=== PATIENT | female | born 1950 | race Caucasian/White ===

== ENCOUNTER → 2020-04-25 10:14 | Outpatient (CLI) | payer MEDICARE, SELFPAY ==
[2020-04-26 20:57] LABS: COVID19 Sendout Not Detected (Not Detect)
== END ==
PROVIDERS: Family Provider Orthopaedic Surgery; PCP Physician Assistant; Visit Provider Physician Assistant
DX: Z11.59 Encounter for screening for other viral diseases (principal)
CPT/HCPCS: 87635

== ENCOUNTER → 2020-04-28 10:24 | Outpatient (CLI) | payer MEDICARE, OTHER, SELFPAY ==
--- NOTE | 2020-04-28 | DI.NM.S_ITS ---
PROCEDURE: NM DENNIS PERF SPECT REST & STR Rest and exercise myocardial perfusion SPECT with gated imaging and ejection fraction RADIOPHARMACEUTICAL: 25.4 mCi Tc-99m sestamibi IV at rest and 26.7 mCi Tc-99m sestamibi IV at peak exercise. A two day-protocol was performed. INDICATIONS: Other chest pain TECHNIQUE: Radiopharmaceutical was injected at peak stress test, and also at rest. SPECT images were obtained. SPECT myocardial perfusion images were displayed in short axis, horizontal long axis, and vertical long axis views. Gated images were reviewed using [employer] software. COMPARISON: None. CARDIAC STRESS: A standard [place] treadmill exercise tolerance test was performed by the patient under the supervision of an attending staff. The patient exercised for 3 minutes and 15 seconds; functional aerobic impairment (BUCK) is +37%. Hemodynamic data: There is normal blood pressure and heart rate response to exercise stress. Patient achieved 107% of maximum predicted heart rate at peak exercise. Symptoms: Patient denied chest pain during exercise. EKG: No diagnostic EKG changes of ischemia; no ectopy. FINDINGS: Raw data: There is good myocardial labeling by radiotracer. No significant motion artifacts. Xeny-ho-junan ratio is 0.38 (normal is less than 0.38 for sestamibi tracer, and less than 0.50 for thallium tracer). Left ventricle function: Gated images demonstrate normal left ventricle wall thickening. No segmental wall motion abnormality. No transient ischemic dilation; TID is 1.0 (normal less than 1.3). The left ventricle resting end-diastolic volume is 67 mL. Left ventricle stress ejection fraction is 91%; normal values are above 45%. Myocardial perfusion: There is normal distribution of activity in the left and right ventricular myocardium. No fixed or reversible perfusion defects. IMPRESSION: Low risk, normal treadmill nuclear stress test 1) No perfusion evidence of ischemia or infarction. 2) Normal left ventricular size, wall motion, and systolic function (EF post stress 91%). 3) No ECG evidence of ischemia. 4) Severely reduced exercise capacity (4.6 METs, BUCK +37%). Exercise limited by joint pains and the patient couldn't keep up with the treadmill in second stage of exercise. 5) Adequate stress test. Appropriate BP response to exercise. 6) No prior nuclear stress test available for comparison. Dictated by: Diana Oden MD on 04/29/2020 at 16:26 Approved by: Diana Oden MD on 04/29/2020 at 16:30
== END ==
PROVIDERS: Family Provider Orthopaedic Surgery; PCP Physician Assistant; Referring Provider Physician Assistant; Visit Provider Internal Medicine Cardiovascular Disease
DX: R07.89 Other chest pain (principal)
CPT/HCPCS: 78452; 93017; A9502

== ENCOUNTER → 2020-12-08 13:05 | Outpatient (CLI) | payer MEDICARE, OTHER, SELFPAY ==
--- NOTE | 2020-12-08 | DI.MRI.S_ITS ---
PROCEDURE: MR HEAD/BRAIN WO/W CON INDICATIONS: Other abnormalities of gait and mobility TECHNIQUE: Noncontrast axial T1 spin echo, axial T2 fast spin echo, sagittal and axial FLAIR, coronal T2 fast spin echo, axial gradient echo, axial diffusion and ADC through the brain. After the administration of contrast, axial and coronal T1 spin echo with fat saturation through the brain. COMPARISON: None. FINDINGS: Image quality: Excellent. CSF spaces: Basal cisterns are patent. No extra-axial fluid collections. Ventricles are normal in size and shape. Brain: No midline shift. No intracranial bleeds or masses. No abnormal intracranial enhancement. There is moderate cerebral volume loss for age. There is moderate periventricular white matter chronic small vessel ischemic change. The brainstem appears normal. Diffusion-weighted images demonstrate no acute ischemic insults. Small chronic infarct with surrounding gliosis noted in the posterior-medial and superior margin of the right cerebellar hemisphere. Normal intravascular flow voids are present. Skull and face: Calvarial marrow is normal in signal. Orbits appear normal. Sinuses: Sinuses and mastoids appear clear. IMPRESSION: 1. No acute intracranial disease process. 2. No areas of acute infarction. 3. Small, chronic right cerebellar hemisphere infarct. Taylor a 4. Moderate, diffuse cerebral volume loss. 5. Moderate periventricular and subcortical white matter chronic microvascular ischemic change. 6. No abnormal intracranial mass or mass effect. 7. No suspicious postcontrast enhancement. Dictated by: Nunu Boone MD, PhD on 12/08/2020 at 17:14 Approved by: Nunu Boone MD, PhD on 12/08/2020 at 17:17
== END ==
PROVIDERS: Family Provider Orthopaedic Surgery; PCP Physician Assistant; Referring Provider Physician Assistant; Visit Provider Physician Assistant
DX: R41.3 Other amnesia (principal); R29.5 Transient paralysis; R26.89 Other abnormalities of gait and mobility
CPT/HCPCS: 70553